=== PATIENT | male | born 1970 | race Hispanic/Latino ===

== ENCOUNTER 2023-10-01 00:36 | Emergency (ER) | payer OTHER ==
[~2023-10-01] VITALS: Ht 165.1 cm; Wt 99.8 kg
[2023-10-01 04:54] LABS: BASOPHILS # (AUTO) 0.05 K/uL (0.00-0.20); BASOPHILS % (AUTO) 0.7 % (0.0-5.0); EOSINOPHILS # (AUTO) 0.28 K/uL (0.00-0.70); EOSINOPHILS % (AUTO) 3.9 % (0.0-8.0); HEMATOCRIT 45.8 % (42-54); IMMATURE GRANULOCYTE ABSOLUTE 0.03 K/uL (0-1); LYMPHOCYTES # (AUTO) 3.2 K/uL (1.0-4.8); LYMPHOCYTES % (AUTO) 44.5 % (21.0-51.0); MEAN CORPUSCULAR HEMOGLOBIN 27.6 pg (27.0-33.0); MEAN CORPUSCULAR HGB CONC 32.8 g/dL (32.0-36.0); MEAN CORPUSCULAR VOLUME 84.3 fL (79-99); MONOCYTES # (AUTO) 0.7 K/uL (0.1-1.0); MONOCYTES % (AUTO) 10.2 % (3.0-13.0); NEUTROPHILS # (AUTO) 2.9 K/uL (1.8-7.7); NEUTROPHILS % (AUTO) 40.3 % (40.0-77.0); PLATELET COUNT (AUTO) 222 K/uL (130-400); RED BLOOD CELL COUNT(AUTO) 5.43 MIL/uL (4.50-6.20); RED CELL DISTRIBUTION WIDTH 13.4 % (11.0-15.5); WHITE BLOOD COUNT (AUTO) 7.1 K/uL (4.8-10.8)
[2023-10-01 05:02] LABS: CARBON DIOXIDE 28 mmol/L (21-32); CHLORIDE 102 mmol/L (101-111); CREATININE 0.8 mg/dL (0.5-1.5); GLOMERULAR FILTR. RATE CALC 107 mL/min (>90); GLUCOSE,RANDOM 97 mg/dL (70-105); POTASSIUM 3.9 mmol/L (3.5-5.1); SODIUM SERUM 137 mmol/L (136-145); UREA NITROGEN, BLOOD 21 mg/dL (7-18)
[2023-10-01 05:06] LABS: ALANINE AMINOTRANSFERASE 54 U/L (12-78); ALBUMIN 3.7 g/dL (3.5-5.0); ASPARTATE AMINOTRANSFERASE 22 U/L (10-37); BILIRUBIN,TOTAL 0.2 mg/dL (0.2-1.0)
[2023-10-01] MEDS ORDERED: IOHEXOL-350 75 ML VIAL IV ONE (05:55)
[2023-10-01 06:03] LABS: ERYTHROCYTE SEDIMENTATION RATE 40 MM/HR (0-20)
[2023-10-01 06:22] VITALS: BP 148/79; PULSE 77; RESP 15; O2SAT 100
[2023-10-01] MEDS ORDERED: GABA-529 PO (06:56)
== END 2023-10-01 16:20 | disposition home or self-care (01) ==
LOC: EDH 00:36
DX: M79.2 Neuralgia and neuritis, unspecified (principal); R68.84 Jaw pain; Z98.890 Other specified postprocedural states
CPT/HCPCS: 99285; 70488; 80053; 85025; 85651; 86140; 36415; Q9967